=== PATIENT | male | born 1965 | race Caucasian/White ===

== ENCOUNTER 2017-06-26 12:43 | Emergency (ER) | payer OTHER ==
[~2017-06-26] VITALS: Ht 167.6 cm; Wt 86.0 kg
[~2017-06-26 12:43] MED LIST: PANT20TA2 PO
[2017-06-26 12:49] VITALS: BP 142/98
[2017-06-26 14:31] LABS: ANION GAP 9 mmol/L (5-15); CALCIUM 8.6 mg/dL (8.5-10.1); CHLORIDE 108 mmol/L (98-107); CREATININE 0.92 mg/dL (0.7-1.3)
== END 2017-06-26 15:07 | disposition home or self-care (01) ==
LOC: ED 14:00
DX: S86.811A Strain of other muscle(s) and tendon(s) at lower leg level, right leg, initial encounter (principal); X58.XXXA Exposure to other specified factors, initial encounter; Y93.89 Activity, other specified; Y92.89 Other specified places as the place of occurrence of the external cause; Y99.8 Other external cause status; Z87.891 Personal history of nicotine dependence; G35 Multiple sclerosis
CPT/HCPCS: 36415; 80048; 82040; 99285

== ENCOUNTER 2018-05-25 11:23 | Emergency (ER) | payer OTHER ==
[~2018-05-25] VITALS: Ht 167.6 cm; Wt 91.0 kg
[2018-05-25 12:17] LABS: BASOPHILS # (AUTO) 0.01 x10^3/uL (0-0.1); BASOPHILS % (AUTO) 0 % (0-1); EOSINOPHILS # (AUTO) 0.04 x10^3/uL (0-0.4); EOSINOPHILS % (AUTO) 1 % (1-7); LYMPHOCYTES # (AUTO) 0.37 x10^3/uL (1-3.4); LYMPHOCYTES % (AUTO) 5 % (22-44); MD NO; MEAN CORPUSCULAR HEMOGLOBIN 31.1 pg (27.5-34.5); MEAN CORPUSCULAR HGB CONC 34.7 g/dL (33.2-36.2); MEAN CORPUSCULAR VOLUME 89.6 fL (81-97); MEAN PLATELET VOLUME 7.6 fL (7.4-10.4); MONOCYTES # (AUTO) 0.66 x10^3/uL (0.2-0.8); MONOCYTES % (AUTO) 9 % (2-9); NEUTROPHILS # (AUTO) 6.57 x10^3/uL (1.8-6.8); NEUTROPHILS % (AUTO) 86 % (42-75); PLATELET COUNT 218 x10^3/uL (130-400); RED BLOOD COUNT 5.34 x10^6/uL (4.38-5.82)
[2018-05-25 12:34] LABS: ALBUMIN 3.9 g/dL (3.4-5.0); ANION GAP 7 mmol/L (5-15); CALCIUM 8.4 mg/dL (8.5-10.1); CHLORIDE 107 mmol/L (98-107)
[2018-05-25 12:35] LABS: CREATININE 0.89 mg/dL (0.7-1.3)
--- NOTE | 2018-05-25 12:45 | NUR ---
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
--- NOTE | 2018-05-25 12:49 | NUR ---
PT A&OX4, RESP EVEN & UNLABORED, NO COUGH HEARD, SPEECH CLEAR, SKIN WNL. SPOUSE IN ROOM. PT REPORTS FEVER & SORE THROAT X 1 DAY. NO MEDS TAKEN FOR SX. DENIES DSYPNEA, SOB. C/O PAIN W/ SWALLOWING "BECAUSE I'VE BEEN COUGHING SO MUCH". NO FLU VACC THIS SEASON.
[2018-05-25 12:50] LABS: RAPID INFLUENZA A Negative (Negative); RAPID INFLUENZA B Negative (Negative)
--- NOTE | 2018-05-25 12:55 | NUR ---
ELEVATED HR. PT REPORTS "I'M SCARED TO OF SEPSIS"
[2018-05-25] MEDS ORDERED: IBUPROFEN 600 MG TABLET PO ONE (14:00)
[2018-05-25] MEDS ORDERED: IBUPROFEN 600 MG TABLET ONE (14:17)
--- NOTE | 2018-05-25 14:22 | NUR ---
SITTING UPRIGHT ON GURNEY, FULLY DRESSED, AWAITING DC.
[2018-05-25 14:31] VITALS: BP 126/79
== END 2018-05-25 14:34 | disposition home or self-care (01) ==
LOC: ED 14:30
DX: B34.9 Viral infection, unspecified (principal); Z87.891 Personal history of nicotine dependence
CPT/HCPCS: 36415; 71046; 80048; 82040; 83605; 85025; 87400; 99284